=== PATIENT | female | born 1980 | race Caucasian/White ===

== ENCOUNTER 2018-07-31 17:49 | Emergency (ER) | payer OTHER ==
[~2018-07-31] VITALS: Ht 165.1 cm; Wt 95.5 kg
[~2018-07-31 17:49] MED LIST: AMOXICILLIN; EXCEDRIN PM 5001 CAP PO; FLEXERIL5 MG PO; FLUOXETINE; FLUOXETINE40 MG PO; FORTAMET500 MG PO; FROVA PO; LORTAB 5/500 501 TAB PO; MOTRIN 800800 MG/TAB PO; NEXIUM20 MG PO; NO HOME MEDICATIONS; NORCO 325 MG-51 TAB PO; NORCO PO; PERCOCET 325 MG1 TA2 PO; PHENERGAN 25 TA25 MG PO; PROZAC 10MG10 MG PO; SOMA 350MG350 MG/TAB PO; SPRINTEC 35 MCG1 TAB PO
[2018-07-31 17:58] VITALS: TEMP 98.1
[2018-07-31 18:29] LABS: MUCOUS Present /lpf; PH 5 (5-8); URINE APPEARANCE Hazy; URINE BACTERIA None Seen /hpf; URINE BILIRUBIN Negative (NEGATIVE); URINE BLOOD 2+ (NEGATIVE); URINE COLOR Straw; URINE GLUCOSE 3+ (NEGATIVE); URINE KETONE Negative (NEGATIVE); URINE LEUKOCYTE ESTERASE 3+ (NEGATIVE); URINE NITRATE Positive (NEGATIVE); URINE PROTEIN(semi-quant) 1+ (NEGATIVE); URINE RBC 20-50 /hpf; URINE UROBILINOGEN Negative (NEGATIVE); URINE WBC >50 /hpf
[2018-07-31 18:35] LABS: BASO # 0.1 (0.0-0.2); BASO % 0.5 % (0.0-2.0); EOS % 0.1 % (0-4.0); GRAN # 9.6 (1.4-6.5); GRAN % 78.7 % (42.2-75.2); HEMATOCRIT 41.1 % (37.0-47.0); HEMOGLOBIN 14.3 g/dl (12.5-16.0); LYMPH # 1.8 (1.2-3.4); LYMPH % 14.4 % (20.0-51.0); MEAN CELL VOLUME 84 fl (80.0-100.0); MEAN CORPUSCULAR HEMOGLOBIN 29 pg (27.0-31.0); MEAN CORPUSCULAR HGB CONC 35 g/dl (33.0-37.0); MEAN PLATELET VOLUME 11.2 fl (7.4-10.4); MONO # 0.7 (0.1-0.6); MONO % 5.9 % (1.7-9.3); PLATELET COUNT 298 K/mm3 (130-400); RED BLOOD COUNT 4.87 M/mm3 (4.10-5.30); REDCELL DISTRIBUTION WIDTH-CV 12.1 % (11.5-14.5)
[2018-07-31 18:45] LABS: COLLECTION METHOD CLEAN CATCH
[2018-07-31 18:47] LABS: ALBUMIN 4.3 gm/dL (3.5-5.0); BILIRUBIN,TOTAL 0.7 mg/dL (0.0-1.0); CALCIUM 9.3 mg/dL (8.4-10.2); CREATININE, serum 0.45 mg/dL (0.52-1.25); POTASSIUM 4.4 mmol/L (3.4-5.0); TOTAL PROTEIN 7.8 gm/dL (6.4-8.2)
[2018-07-31] MEDS ORDERED: OMNICEF 300MG300 MG PO (19:10)
[2018-07-31] MEDS ORDERED: ZOFRAN ODT8 MG PO (21:38)
[2018-07-31 22:20] VITALS: BP 127/72; PULSE 100
== END 2018-07-31 22:22 | disposition home or self-care (01) ==
LOC: COL.ER 17:49
PROVIDERS: Emergency Medicine
DX: N12 Tubulo-interstitial nephritis, not specified as acute or chronic (principal); R73.9 Hyperglycemia, unspecified; F17.210 Nicotine dependence, cigarettes, uncomplicated
CPT/HCPCS: J0696; J1815; J1885; J2270; J2405; J7030

== ENCOUNTER 2018-08-01 17:32 | Observation (INO) | payer OTHER ==
[~2018-08-01] VITALS: Ht 162.6 cm; Wt 95.7 kg
[~2018-08-01 17:32] MED LIST changes: +OMNICEF 300MG300 MG PO; +ZOFRAN ODT8 MG PO
[2018-08-01 18:08] LABS: COLLECTION METHOD CLEAN CATCH
[2018-08-01 18:10] LABS: BASO % 0.3 % (0.0-2.0); GRAN # 11.2 (1.4-6.5); GRAN % 85.3 % (42.2-75.2); HEMATOCRIT 40.2 % (37.0-47.0); HEMOGLOBIN 13.9 g/dl (12.5-16.0); LYMPH # 1.2 (1.2-3.4); LYMPH % 8.9 % (20.0-51.0); MEAN CELL VOLUME 86 fl (80.0-100.0); MEAN CORPUSCULAR HEMOGLOBIN 30 pg (27.0-31.0); MEAN CORPUSCULAR HGB CONC 35 g/dl (33.0-37.0); MEAN PLATELET VOLUME 11.3 fl (7.4-10.4); MONO # 0.6 (0.1-0.6); MONO % 4.8 % (1.7-9.3); PLATELET COUNT 269 K/mm3 (130-400); REDCELL DISTRIBUTION WIDTH-CV 12.1 % (11.5-14.5)
[2018-08-01 18:31] LABS: MUCOUS Present /lpf; PH 5 (5-8); URINE APPEARANCE Hazy; URINE BACTERIA None Seen /hpf; URINE BILIRUBIN Negative (NEGATIVE); URINE BLOOD Negative (NEGATIVE); URINE COLOR Yellow; URINE GLUCOSE 3+ (NEGATIVE); URINE KETONE 1+ (NEGATIVE); URINE LEUKOCYTE ESTERASE 1+ (NEGATIVE); URINE NITRATE Negative (NEGATIVE); URINE PROTEIN(semi-quant) 1+ (NEGATIVE); URINE UROBILINOGEN Negative (NEGATIVE)
[2018-08-01 18:35] LABS: ALBUMIN 4.2 gm/dL (3.5-5.0); BILIRUBIN,TOTAL 0.8 mg/dL (0.0-1.0); CALCIUM 9.1 mg/dL (8.4-10.2); CREATININE, serum 0.41 mg/dL (0.52-1.25); POTASSIUM 4.2 mmol/L (3.4-5.0); TOTAL PROTEIN 7.8 gm/dL (6.4-8.2)
[2018-08-01 22:14] VITALS: BP 105/62; PULSE 91; TEMP 98.8
[2018-08-01 22:18] VITALS: BP 105/62; PULSE 95; TEMP 98.8
[2018-08-02] VITALS (7 sets, daily range): BP systolic 107–1085; BP diastolic 61–83; PULSE 87–104; TEMP 98–99.2
[2018-08-02 07:27] LABS: BASO % 0.5 % (0.0-2.0); GRAN # 5.6 (1.4-6.5); GRAN % 71.4 % (42.2-75.2); LYMPH # 1.6 (1.2-3.4); LYMPH % 20.7 % (20.0-51.0); MEAN CELL VOLUME 88 fl (80.0-100.0); MEAN CORPUSCULAR HGB CONC 34 g/dl (33.0-37.0); MEAN PLATELET VOLUME 11.5 fl (7.4-10.4); MONO # 0.5 (0.1-0.6); MONO % 6.5 % (1.7-9.3); PLATELET COUNT 230 K/mm3 (130-400); REDCELL DISTRIBUTION WIDTH-CV 12.2 % (11.5-14.5)
[2018-08-02 07:30] LABS: HEMATOCRIT 34.2 % (37.0-47.0); HEMOGLOBIN 11.6 g/dl (12.5-16.0); MEAN CORPUSCULAR HEMOGLOBIN 30 pg (27.0-31.0)
[2018-08-02 07:38] LABS: ALBUMIN 3.1 gm/dL (3.5-5.0); BILIRUBIN,TOTAL 0.4 mg/dL (0.0-1.0); CREATININE, serum 0.37 mg/dL (0.52-1.25); POTASSIUM 3.8 mmol/L (3.4-5.0); TOTAL PROTEIN 6.3 gm/dL (6.4-8.2)
[2018-08-03 04:41] VITALS: BP 122/73; PULSE 93; TEMP 99.4
[2018-08-03 06:11] LABS: BASO # 0.1 (0.0-0.2); BASO % 0.7 % (0.0-2.0); GRAN # 5.5 (1.4-6.5); GRAN % 73.5 % (42.2-75.2); LYMPH # 1.5 (1.2-3.4); LYMPH % 19.9 % (20.0-51.0); MEAN CELL VOLUME 87 fl (80.0-100.0); MEAN CORPUSCULAR HEMOGLOBIN 29 pg (27.0-31.0); MEAN CORPUSCULAR HGB CONC 34 g/dl (33.0-37.0); MEAN PLATELET VOLUME 11.5 fl (7.4-10.4); MONO # 0.4 (0.1-0.6); MONO % 4.7 % (1.7-9.3); PLATELET COUNT 245 K/mm3 (130-400); RED BLOOD COUNT 4.08 M/mm3 (4.10-5.30)
[2018-08-03 06:12] LABS: HEMATOCRIT 35.4 % (37.0-47.0)
[2018-08-03 06:17] LABS: CALCIUM 8.4 mg/dL (8.4-10.2); CREATININE, serum 0.38 mg/dL (0.52-1.25); POTASSIUM 3.7 mmol/L (3.4-5.0)
[2018-08-03 06:59] VITALS: BP 113/67; PULSE 89; TEMP 98.8
[2018-08-03 07:38] LABS: ALBUMIN 3.3 gm/dL (3.5-5.0); BILIRUBIN,TOTAL 0.4 mg/dL (0.0-1.0); TOTAL PROTEIN 6.4 gm/dL (6.4-8.2)
[2018-08-03] MEDS ORDERED: PHENERGAN 25 TA25 MG PO (09:58)
[2018-08-03] MEDS ORDERED: FREESTYLE PREC1 EAC5 MC (09:59)
[2018-08-03] MEDS ORDERED: GLUCOSE TEST ST1 DEV MC (09:59)
[2018-08-03] MEDS ORDERED: HUMULIN 70/3100 U/M1 SQ (10:01)
== END 2018-08-03 13:14 | disposition home or self-care (01) ==
LOC: COL.ER 17:32 → MEDICAL 18:45
PROVIDERS: Emergency Medicine; Nurse Practitioner; Physician Assistant
DX: N12 Tubulo-interstitial nephritis, not specified as acute or chronic (principal); E11.65 Type 2 diabetes mellitus with hyperglycemia; R74.0 Nonspecific elevation of levels of transaminase and lactic acid dehydrogenase [LDH]; K76.0 Fatty (change of) liver, not elsewhere classified; F17.210 Nicotine dependence, cigarettes, uncomplicated; Z79.4 Long term (current) use of insulin; Z83.3 Family history of diabetes mellitus; Z80.3 Family history of malignant neoplasm of breast
CPT/HCPCS: A4216; G0378; J0696; J1650; J1815; J1885; J2405; J2550; J7030